=== PATIENT | female | born 1975 | race Caucasian/White ===

== ENCOUNTER 2019-03-05 12:49 | Emergency (ER) | payer BC ==
[~2019-03-05] VITALS: Ht 167.6 cm; Wt 88.9 kg
[2019-03-05 12:51] VITALS: BP 110/67
--- NOTE | 2019-03-05 13:00 | NUR ---
PT AMBULATED TO ER BED 12
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
--- NOTE | 2019-03-05 13:13 | NUR ---
PT PLACED IN POSITION FOR PELVIC EXAM, DR. PANIAGUA MADE AWARE
[2019-03-05 14:11] LABS: APPEARANCE,URINE HAZY (CLEAR); BILIRUBIN,URINE NEGATIVE (NEGATIVE); BLOOD, URINE NEGATIVE (NEGATIVE); COLOR,URINE YELLOW (YELLOW); LEUKOCYTE ESTERASE ,URINE 1+ (NEGATIVE); NITRITE, URINE NEGATIVE (NEGATIVE); PH,URINE 6.5 (5.0-9.0); UGLUCOSE NEGATIVE (NEGATIVE)
[2019-03-05 14:25] LABS: RBC,URINE 0-5 /HPF (0-5)
--- NOTE | 2019-03-05 14:44 | NUR ---
Patient discharged with v/s stable. Written and verbal after care instructions given and explained. Patient alert, oriented and verbalized understanding of instructions. Ambulatory with steady gait. All questions addressed prior to discharge. ID band removed. Patient advised to follow up with PMD. Rx of bactrim ds/ motrin given. Patient educated on indication of medication including possible reaction and side effects. Opportunity to ask questions provided and answered.
[2019-03-05 14:45] VITALS: BP 128/71
== END 2019-03-05 14:44 | disposition home or self-care (01) ==
LOC: MED 12:49
DX: N39.0 Urinary tract infection, site not specified (principal); N89.8 Other specified noninflammatory disorders of vagina
CPT/HCPCS: 81001; 87070; 87086; 87210; 99283

== ENCOUNTER 2019-12-26 14:16 | Emergency (ER) | payer BC ==
[~2019-12-26] VITALS: Ht 167.6 cm; Wt 95.3 kg
[2019-12-26 14:23] VITALS: BP 107/70
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
--- NOTE | 2019-12-26 14:33 | NUR ---
MARIAH ONTIVEROS AT BEDSIDE EXAMINING PT
[2019-12-26] MEDS ORDERED: FLUORESCEIN OPTH STRIP 1 MG OP ONE (14:35)
[2019-12-26] MEDS ORDERED: TETRACAINE HCL/PF 0.5% OPTH 4 ML BTL ONE (14:36)
[2019-12-26] MEDS ORDERED: TETRACAINE HCL/PF 0.5% OPTH 4 ML BTL OP ONE (14:40)
[2019-12-26 14:59] VITALS: BP 107/70
--- NOTE | 2019-12-26 14:59 | NUR ---
Patient discharged with v/s stable. Written and verbal after care instructions given and explained. Patient alert, oriented and verbalized understanding of instructions. Ambulatory with steady gait. All questions addressed prior to discharge. ID band removed. Patient advised to follow up with PMD. Rx of ERYTHROMYCIN 0.5% OPTHALMIC OINTMENT AND TRAMADOL 50MG given. Patient educated on indication of medication including possible reaction and side effects. Opportunity to ask questions provided and answered.
== END 2019-12-26 14:54 | disposition home or self-care (01) ==
LOC: MED 14:16
DX: S05.01XA Injury of conjunctiva and corneal abrasion without foreign body, right eye, initial encounter (principal); W45.8XXA Other foreign body or object entering through skin, initial encounter; Y93.89 Activity, other specified; Y92.89 Other specified places as the place of occurrence of the external cause; Y99.8 Other external cause status
CPT/HCPCS: 99283